=== PATIENT | male | born 1970 | race Caucasian/White ===

== ENCOUNTER 2017-03-25 12:05 | Emergency (ER) | payer SELFPAY ==
[~2017-03-25] VITALS: Ht 198.1 cm; Wt 118.2 kg
[~2017-03-25 12:05] MED LIST: ADVIL 200MG TA200 MG PO; AMOXICILLIN 50500 MG PO; ATIVAN 1MG T1 MG/TAB PO; ATIVAN1 MG PO; BUTALBITAL, ACE1 CA1 PO; CELEXA40 MG PO; CIPRO 500MG TA500 MG PO; GABAPENTIN300 M1 PO; GABAPENTIN300 MG; HYDROCODONE/APAP PO; KLONOPIN1 MG PO; LISINOPRIL40 MG PO; MOBIC7.5 M1 PO; NO HOME MEDICATIONS; NORCO 325 MG-51 TA1 PO; NORCO 325 MG-51 TAB PO; NORCO 325 MG-7.1 TA1 PO; OMEPRAZOLE40 MG PO; OXYCONTIN15 MG PO; PEN-VEE K500 MG PO; PERCOCET 325 MG1 TA2 PO; PERCOCET 500 MG1 TAB PO; TRAZODONE100 MG PO; TRIMETHOBENZAM300 MG PO; ZANTAC150 M1 PO; ZOLOFT50 MG PO
[2017-03-25] MEDS ORDERED: PREDNISONE20 M1 PO (14:01)
[2017-03-25 14:13] VITALS: BP 168/106
== END 2017-03-25 14:08 | disposition home or self-care (01) ==
LOC: ED 12:05
DX: L23.7 Allergic contact dermatitis due to plants, except food (principal); I10 Essential (primary) hypertension; K21.9 Gastro-esophageal reflux disease without esophagitis; F41.9 Anxiety disorder, unspecified; F17.210 Nicotine dependence, cigarettes, uncomplicated; Z88.8 Allergy status to other drugs, medicaments and biological substances; Z91.018 Allergy to other foods; Z85.47 Personal history of malignant neoplasm of testis
CPT/HCPCS: J1200; J2930; J3490; J7030

== ENCOUNTER 2017-04-16 15:34 | Emergency (ER) | payer SELFPAY ==
[~2017-04-16] VITALS: Ht 198.1 cm; Wt 118.2 kg
[~2017-04-16 15:34] MED LIST changes: +PREDNISONE20 M1 PO
[2017-04-16 15:35] VITALS: BP 165/111
[2017-04-16] MEDS ORDERED: PEPCID 20MG TAB20 MG PO (16:14)
[2017-04-16] MEDS ORDERED: PREDNISONE20 M1 PO (16:14)
[2017-04-16] MEDS ORDERED: ZYRTEC10 M3 PO (16:14)
== END 2017-04-16 16:25 | disposition home or self-care (01) ==
LOC: ED 15:34
DX: L23.9 Allergic contact dermatitis, unspecified cause (principal); I10 Essential (primary) hypertension; F17.210 Nicotine dependence, cigarettes, uncomplicated; Z88.8 Allergy status to other drugs, medicaments and biological substances; Z91.018 Allergy to other foods; Z85.47 Personal history of malignant neoplasm of testis; K21.9 Gastro-esophageal reflux disease without esophagitis
CPT/HCPCS: J1200

== ENCOUNTER 2017-05-19 23:34 | Emergency (ER) | payer SELFPAY ==
[~2017-05-19] VITALS: Ht 193 cm; Wt 120.9 kg
[~2017-05-19 23:34] MED LIST changes: +PEPCID 20MG TAB20 MG PO; +ZYRTEC10 M3 PO
[2017-05-19] MEDS ORDERED: BENADRYL25 M2 PO (23:46)
[2017-05-20 00:34] LABS: HEMATOCRIT 42.6 % (42.0-52.0); HEMOGLOBIN 14.5 g/dL (13.5-18.0); MEAN CELL VOLUME 92 fl (78-100); MEAN CORPUSCULAR HEMOGLOBIN 31 pg (27-31); MEAN CORPUSCULAR HGB CONC 34 g/dL (33-37); MEAN PLATELET VOLUME 9.4 fl (7.4-10.4); PLATELET COUNT 247 K/mm3 (130-400); RED BLOOD COUNT 4.65 M/mm3 (4.20-5.60); WHITE BLOOD COUNT 6.1 K/mm3 (4.8-10.8)
[2017-05-20 00:47] LABS: CALCIUM 9.2 mg/dL (8.4-10.2); LYMPHOCYTE 11 % (20-51); MONOCYTE 7 % (3-10); NEUTROPHILS 82 % (42-75); POTASSIUM 4.6 mmol/L (3.6-5.0); TOTAL BILIRUBIN 0.7 mg/dL (0.2-1.3); TOTAL PROTEIN 7.1 g/dL (6.3-8.2)
[2017-05-20] MEDS ORDERED: KENALOG 60 ML60 M1 TP (01:18)
[2017-05-20] MEDS ORDERED: HYDROXYZINE HCL25 M1 PO (01:18)
[2017-05-20] MEDS ORDERED: CEPHALEXIN500 M1 PO (01:18)
[2017-05-20 01:31] LABS: ERYTHROCYTE SEDIMENTATION RATE 6 mm/hr (0-15)
[2017-05-20 01:45] VITALS: BP 162/104
== END 2017-05-20 01:45 | disposition home or self-care (01) ==
LOC: ED 23:34
PROVIDERS: Family Medicine
DX: L30.9 Dermatitis, unspecified (principal); I10 Essential (primary) hypertension; Z87.820 Personal history of traumatic brain injury
CPT/HCPCS: Q0177

== ENCOUNTER 2017-05-30 09:07 | Emergency (ER) | payer SELFPAY ==
[~2017-05-30] VITALS: Wt 117.5 kg
[~2017-05-30 09:07] MED LIST changes: +BENADRYL25 M2 PO; +CEPHALEXIN500 M1 PO; +HYDROXYZINE HCL25 M1 PO; +KENALOG 60 ML60 M1 TP
[2017-05-30] MEDS ORDERED: ZANTAC150 M1 PO (09:21)
[2017-05-30 10:37] LABS: EOS # 0.1 (0.04-0.40); HEMATOCRIT 38.2 % (42.0-52.0); HEMOGLOBIN 12.9 g/dL (13.5-18.0); LYMPH# 1.6 (1.50-4.00); MEAN CELL VOLUME 89 fl (78-100); MEAN CORPUSCULAR HEMOGLOBIN 30 pg (27-31); MEAN CORPUSCULAR HGB CONC 34 g/dL (33-37); MEAN PLATELET VOLUME 9.4 fl (7.4-10.4); MONO # 0.8 (0.20-0.80); NEU # 5.6 (1.40-6.50); PLATELET COUNT 283 K/mm3 (130-400); RED CELL DISTRIBUTION WIDTH 14.1 % (11.5-14.5); WHITE BLOOD COUNT 8.2 K/mm3 (4.8-10.8)
[2017-05-30 10:45] LABS: ALBUMIN 3.6 g/dL (3.5-5.0); BUN/CREATININE RATIO 11.6 (6.0-26.0); CALCIUM 8.8 mg/dL (8.4-10.2); POTASSIUM 3.6 mmol/L (3.6-5.0); TOTAL BILIRUBIN 0.4 mg/dL (0.2-1.3); TOTAL PROTEIN 7.1 g/dL (6.3-8.2)
[2017-05-30 11:36] LABS: ERYTHROCYTE SEDIMENTATION RATE 68 mm/hr (0-15)
[2017-05-30 11:47] VITALS: BP 133/87
[2017-05-30] MEDS ORDERED: NORCO 325 MG-51 TA1 PO (11:47)
[2017-05-30] MEDS ORDERED: PROAIR HFA0.09 MG/AC IH (11:47)
== END 2017-05-30 11:58 | disposition home or self-care (01) ==
LOC: ED 09:07
PROVIDERS: Physician Assistant
DX: L30.9 Dermatitis, unspecified (principal); I10 Essential (primary) hypertension; Z85.47 Personal history of malignant neoplasm of testis; K21.9 Gastro-esophageal reflux disease without esophagitis; F17.210 Nicotine dependence, cigarettes, uncomplicated; R06.2 Wheezing
CPT/HCPCS: J1200; J1885

== ENCOUNTER 2019-10-04 15:57 | Emergency (ER) | payer SELFPAY ==
[~2019-10-04 15:57] MED LIST changes: +PROAIR HFA0.09 MG/AC IH
[2019-10-04] MEDS ORDERED: HYDROCHLOROTHIA1 T15 PO (16:45)
[2019-10-04 17:05] VITALS: BP 146/107
== END 2019-10-04 16:57 | disposition home or self-care (01) ==
LOC: ED 15:57
DX: S61.411A Laceration without foreign body of right hand, initial encounter (principal); I10 Essential (primary) hypertension; W26.8XXA Contact with other sharp object(s), not elsewhere classified, initial encounter
CPT/HCPCS: 90715

== ENCOUNTER 2020-10-16 19:57 | Emergency (ER) | payer SELFPAY ==
[~2020-10-16 19:57] MED LIST changes: +HYDROCHLOROTHIA1 T15 PO
[2020-10-16 21:32] LABS: POTASSIUM 3.7 mmol/L (3.5-5.1)
[2020-10-16 21:33] LABS: CALCIUM 8.7 mg/dL (8.3-10.5)
[2020-10-16 23:05] VITALS: BP 173/131
== END 2020-10-16 23:17 | disposition left against medical advice (07) ==
LOC: ED 19:57
PROVIDERS: Family Medicine
DX: S39.011A Strain of muscle, fascia and tendon of abdomen, initial encounter (principal); I10 Essential (primary) hypertension; X50.9XXA Other and unspecified overexertion or strenuous movements or postures, initial encounter
CPT/HCPCS: J1885

== ENCOUNTER 2024-06-18 08:55 | Emergency (ER) | payer MEDICAID ==
[~2024-06-18] VITALS: Ht 177.8 cm; Wt 122.7 kg
[2024-06-18 09:29] LABS: HEMATOCRIT 47.9 % (42.0-52.0); HEMOGLOBIN 16.5 g/dL (13.5-18.0); MEAN CELL VOLUME 91 fl (78-100); MEAN CORPUSCULAR HEMOGLOBIN 32 pg (27-31); MEAN CORPUSCULAR HGB CONC 34 g/dL (33-37); MEAN PLATELET VOLUME 9.7 fl (7.4-10.4); PLATELET COUNT 218 K/mm3 (130-400); RED BLOOD COUNT 5.24 M/mm3 (4.20-5.60); RED CELL DISTRIBUTION WIDTH 13.3 % (11.5-14.5)
[2024-06-18 09:41] LABS: ALBUMIN 4.7 g/dL (3.5-5.0); SODIUM 136 mmol/L (136-145)
[2024-06-18 09:42] LABS: CALCIUM 9.6 mg/dL (8.3-10.5)
[2024-06-18] MEDS ORDERED: TRAMADOL 50 MG TAB PO (09:42)
[2024-06-18] MEDS ORDERED: DIVALPROEX SOD250 MG PO (09:42)
[2024-06-18 09:43] LABS: GLUCOSE 142 mg/dL (75-110); TOTAL PROTEIN 8.2 g/dL (6.4-8.3)
[2024-06-18 09:44] LABS: CARBON DIOXIDE 19 mmol/L (22-29)
[2024-06-18 09:45] LABS: TOTAL BILIRUBIN 0.6 mg/dL (0.2-1.2)
[2024-06-18 09:48] LABS: ALCOHOL IN-HOUSE < 10 mg/dL (<10); AST-SGOT 25 U/L (5-34)
[2024-06-18 09:50] LABS: ALT/SGPT 24 U/L (0-55)
[2024-06-18] MEDS ORDERED: RESTORIL 77.5 MG/CAP PO (09:59)
[2024-06-18] MEDS ORDERED: ELIQUIS5 MG PO (09:59)
[2024-06-18] MEDS ORDERED: PROAIR HFA0.09 MG/AC IH (10:00)
[2024-06-18] MEDS ORDERED: COZAAR 50MG50 MG/TAB PO (10:00)
[2024-06-18] MEDS ORDERED: ONDANSETRON HYDR4 MG PO (10:00)
[2024-06-18] MEDS ORDERED: Divalproex 250 MG Delayed Release TAB PO ONE (10:00)
[2024-06-18] MEDS ORDERED: FEOSOL325 MG PO (10:01)
[2024-06-18 10:03] LABS: TROPONIN-I < 0.030 ng/mL (0.00-0.033)
[2024-06-18 10:15] LABS: LYMPHOCYTE 4 % (20-51); MONOCYTE 8 % (3-10); NEUTROPHILS 85 % (42-75)
[2024-06-18] MEDS ORDERED: Iohexol 350 - 100 ML VIAL IV ONE (10:36)
[2024-06-18] MEDS ORDERED: NS 100 ML IV SCH (10:37)
[2024-06-18] MEDS ORDERED: DEPAKOTE ER 50500 MG PO (13:29)
[2024-06-18 13:36] VITALS: BP 144/74
== END 2024-06-18 13:41 | disposition home or self-care (01) ==
LOC: ED 08:55
PROVIDERS: Physician Assistant
DX: G40.409 Other generalized epilepsy and epileptic syndromes, not intractable, without status epilepticus (principal); I71.02 Dissection of abdominal aorta; F15.90 Other stimulant use, unspecified, uncomplicated; F17.210 Nicotine dependence, cigarettes, uncomplicated; Z79.01 Long term (current) use of anticoagulants; Z91.148 Patient's other noncompliance with medication regimen for other reason
CPT/HCPCS: Q9967